=== PATIENT | female | born 1980 | race Caucasian/White ===

== ENCOUNTER 2020-10-07 02:27 | Emergency (ER) | payer OTHER ==
[~2020-10-07] VITALS: Ht 157.5 cm; Wt 97.5 kg
[2020-10-07] MEDS ORDERED: DIAZEPAM5 MG (02:47)
[2020-10-07] MEDS ORDERED: ACIFEX (02:48)
[2020-10-07] MEDS ORDERED: ZOFRAN8 MG PO (05:07)
== END 2020-10-07 05:26 | disposition home or self-care (01) ==
LOC: ER 02:27
DX: R50.9 Fever, unspecified (principal); M54.5 Low back pain; R11.0 Nausea

== ENCOUNTER → 2023-06-22 | Emergency (ER) | payer OTHER ==
[~2023-06-22] VITALS: Ht 154.9 cm; Wt 89.8 kg
[~2023-06-22] MED LIST: ACIFEX; ANTIVERT25 M2; DIAZEPAM5 MG; ORPHENADRINE C100 MG PO; PEPCID AC10 MG; VALIUM; ZOFRAN8 MG PO
== END | disposition home or self-care (01) ==
LOC: ER 01:35
DX: G44.209 Tension-type headache, unspecified, not intractable (principal); Z91.041 Radiographic dye allergy status; Z91.013 Allergy to seafood; G43.909 Migraine, unspecified, not intractable, without status migrainosus